=== PATIENT | female | born 1975 | race Caucasian/White ===

== ENCOUNTER 2021-03-15 11:55 | Emergency (ER) | payer SELFPAY | END 2021-03-15 16:35 | disposition home or self-care (01) | LOC: FER 11:55 | DX: R10.9 Unspecified abdominal pain (principal); G89.29 Other chronic pain; R11.2 Nausea with vomiting, unspecified; R19.7 Diarrhea, unspecified; F17.210 Nicotine dependence, cigarettes, uncomplicated; Z88.0 Allergy status to penicillin; Z88.2 Allergy status to sulfonamides ==

== ENCOUNTER 2021-12-14 16:55 | Emergency (ER) | payer OTHER ==
[~2021-12-14 16:55] MED LIST: COLACE100 M1 PO; IBUPROFEN800 MG PO; LISINOPRIL-HCT1 EAC2 PO; NORCO 5-325 TA1 EACH PO; OMEPRAZOLE 20MG20 MG PO; ONDANSETRON ODT4 MG PO; PROTONIX 40MG T40 MG PO; PROZAC20 MG PO; ZOLOFT25 MG PO
[2021-12-14] MEDS ORDERED: CLEOCIN300 MG PO (18:46)
[2021-12-14] MEDS ORDERED: NORCO 5-325 TA1 EACH PO (18:46)
== END 2021-12-14 19:17 | disposition home or self-care (01) ==
LOC: FER 16:55
DX: K61.1 Rectal abscess (principal); E11.9 Type 2 diabetes mellitus without complications; I10 Essential (primary) hypertension; Z88.0 Allergy status to penicillin; Z88.2 Allergy status to sulfonamides
CPT/HCPCS: 99283